=== PATIENT | male | born 1975 | race Caucasian/White ===

== ENCOUNTER 2018-12-27 13:00 | Outpatient (CLI) | payer OTHER | END 2018-12-27 13:07 | disposition home or self-care (01) | LOC: SONOGRAMA 13:00 → MAMO-SONO 13:15 | DX: D69.59 Other secondary thrombocytopenia (principal); D51.1 Vitamin B12 deficiency anemia due to selective vitamin B12 malabsorption with proteinuria; Z86.010 Personal history of colon polyps; K51.419 Inflammatory polyps of colon with unspecified complications; E06.3 Autoimmune thyroiditis; E03.8 Other specified hypothyroidism; R97.0 Elevated carcinoembryonic antigen [CEA]; E04.8 Other specified nontoxic goiter ==

== ENCOUNTER → 2018-12-27 | Outpatient (CLI) | payer OTHER | END | disposition home or self-care (01) | LOC: LAB 11:55 | DX: D69.59 Other secondary thrombocytopenia (principal); D51.1 Vitamin B12 deficiency anemia due to selective vitamin B12 malabsorption with proteinuria; Z86.010 Personal history of colon polyps; K51.419 Inflammatory polyps of colon with unspecified complications; E06.3 Autoimmune thyroiditis; E03.8 Other specified hypothyroidism; R97.0 Elevated carcinoembryonic antigen [CEA]; D50.8 Other iron deficiency anemias; D51.8 Other vitamin B12 deficiency anemias; N39.0 Urinary tract infection, site not specified ==

== ENCOUNTER 2021-01-23 09:34 | Outpatient (CLI) | payer OTHER | END 2021-01-23 09:39 | disposition home or self-care (01) | LOC: LAB 09:34 | PROVIDERS: ATTEND Internal Medicine Hematology & Oncology | DX: R74.02 Elevation of levels of lactic acid dehydrogenase [LDH] (principal); R79.89 Other specified abnormal findings of blood chemistry; I10 Essential (primary) hypertension; K76.89 Other specified diseases of liver; D50.8 Other iron deficiency anemias; R97.0 Elevated carcinoembryonic antigen [CEA]; R97.8 Other abnormal tumor markers; R97.20 Elevated prostate specific antigen [PSA]; D51.1 Vitamin B12 deficiency anemia due to selective vitamin B12 malabsorption with proteinuria; D69.59 Other secondary thrombocytopenia; E06.3 Autoimmune thyroiditis; Z86.010 Personal history of colon polyps; K51.419 Inflammatory polyps of colon with unspecified complications; E03.8 Other specified hypothyroidism ==